=== PATIENT | female | born 1955 | race Two or more races ===

== ENCOUNTER 2024-07-28 06:25 | Emergency (ER) | payer OTHER ==
[~2024-07-28] VITALS: Ht 170.2 cm; Wt 76.7 kg
[2024-07-28] MEDS ORDERED: COZAAR50 MG PO (06:35)
[2024-07-28] MEDS ORDERED: EZALLOR SPRINKL40 MG PO (06:35)
[2024-07-28] MEDS ORDERED: LEVOFLOXACIN500 MG PO (06:35)
[2024-07-28] MEDS ORDERED: TRAMADOL HCL 50 MG TABLET PO STA (08:39)
== END 2024-07-28 11:09 | disposition home or self-care (01) ==
LOC: ER 06:27
DX: S22.32XA Fracture of one rib, left side, initial encounter for closed fracture (principal); W18.39XA Other fall on same level, initial encounter; Y93.89 Activity, other specified; Y92.89 Other specified places as the place of occurrence of the external cause; I10 Essential (primary) hypertension